=== PATIENT | female | born 1955 ===

== ENCOUNTER 2021-12-08 03:54 | Emergency (ER) | payer BC, OTHER ==
[~2021-12-08] VITALS: Ht 152.4 cm; Wt 45.4 kg
[2021-12-08 06:05] VITALS: BP 132/79
== END 2021-12-08 06:17 | disposition home or self-care (01) ==
LOC: ER 03:54
DX: R51.9 Headache, unspecified (principal); T50.905A Adverse effect of unspecified drugs, medicaments and biological substances, initial encounter; Y92.89 Other specified places as the place of occurrence of the external cause
CPT/HCPCS: 71045; 93005